=== PATIENT | female | born 1995 | race Caucasian/White ===

== ENCOUNTER 2016-11-10 11:49 | Emergency (ER) | payer OTHER ==
[2016-11-10 12:08] VITALS: BP 127/65
--- NOTE | 2016-11-10 12:17 | UC ---
Ear Complaint HPI - HPI Summary HPI Summary: right ear fullness, cannot hear well from the right ear, mild ear pain , no cold sx, no fever, no chills - History of Current Complaint Chief Complaint: UCEar Stated Complaint: RIGHT EAR PAIN Time Seen by Provider: 11/10/16 12:12 Hx Obtained From: Patient Hx Last Menstrual Period: 11/06/16 ?: No Onset/Duration: Gradual Onset, Lasting Days - 1, Still Present Severity Initially: Moderate Severity Currently: Moderate Aggravating Factors: Nothing Alleviating Factors: Nothing Associated Signs/Symptoms: Positive: Hearing Loss - right ear. Negative: Discharge, Foreign Body Sensation, Trauma to Ear, Swelling @, URI Symptoms - Allergies/Home Medications Allergies/Adverse Reactions: Allergies Allergy/AdvReac Type Severity Reaction Status Date / Time No Known Allergies Allergy Verified 11/10/16 12:08 Home Medications: Home Medications Norgestrel & Ethinyl Estradiol [Cryselle-28 0.3-30 mg-Mcg] 1 tab PO DAILY [History Confirmed 11/10/16] PMH/Surg Hx/FS Hx/Imm Hx Respiratory History Of: Reports: Asthma - R/T [employer] - Surgical History Surgical History: Yes Surgery Procedure, Year, and Place: WISDOM TEETH, RIGHT MENISCUS, HAGELIN'S DEFORMITY LEFT FOOT, 2 OVARIAN CYSTS - Family History Known Family History: Positive: None Negative: Diabetes - Social History Alcohol Use: Weekly Substance Use Type: None Smoking Status (MU): Never Smoked Tobacco - Immunization History Most Recent Influenza Vaccination: none Review of Systems Constitutional: Negative Skin: Negative Eyes: Negative ENT: Ear Ache - right ear Respiratory: Negative All Other Systems Reviewed And Are Negative: Yes Physical Exam Triage Information Reviewed: Yes Appearance: Well-Appearing, No Pain Distress, Well-Nourished Vital Signs: Initial Vital Signs Temp 98.5 F 11/10/16 12:03 Pulse 70 11/10/16 12:03 Resp 14 11/10/16 12:03 BP 127/65 11/10/16 12:03 Pulse Ox 98 11/10/16 12:03 Vital Signs Reviewed: Yes Eyes: Positive: Conjunctiva Clear ENT: Positive: Normal ENT inspection, Hearing grossly normal, Pharynx normal, Other: - cerumen impaction right ear Neck: Positive: Supple, Nontender, No Lymphadenopathy Respiratory: Positive: Chest non-tender, Lungs clear, Normal breath sounds Cardiovascular: Positive: RRR, No Murmur, Pulses Normal Skin Exam: Normal Ear Complaint Course/Dx - Differential Dx/Diagnosis Provider Diagnoses: cerumen impaction right ear Discharge - Discharge Plan Condition: Stable Disposition: HOME Patient Education Materials: Cerumen Impaction (ED) Referrals: Non Staff,Doctor [Primary Care Provider] - If Needed
== END 2016-11-10 12:51 | disposition home or self-care (01) ==
LOC: UCCORT 11:49
DX: H61.21 Impacted cerumen, right ear (principal); J45.909 Unspecified asthma, uncomplicated
CPT/HCPCS: 69209; 99211; G0463

== ENCOUNTER 2017-05-05 20:24 | Emergency (ER) | payer OTHER ==
[2017-05-05 20:43] VITALS: BP 134/76
[2017-05-05] MEDS ORDERED: Albuterol/Ipratropium NEB.SOL* Albuterol 2.5 MG/Ipratropium 0.5 MG 3 ML INH ONE (21:01)
[2017-05-05] MEDS ORDERED: predniSONE TAB* 20 MG PO ONE (21:01)
--- NOTE | 2017-05-05 21:07 | UC ---
Respiratory Complaint HPI - HPI Summary HPI Summary: Cough and congestion for three days. she has asthma and this often triggers it. She has felt chest tightness and wheezing. No fever or hemoptysis. She has albuterol MDI and spacer at home. She has hx of this and it often is helped with steroids, z pack, albuterol. - History of Current Complaint Chief Complaint: UCRespiratory Stated Complaint: COUGH Time Seen by Provider: 05/05/17 20:48 Hx Obtained From: Patient Hx Last Menstrual Period: 04/22/17 Onset/Duration: Gradual Onset, Lasting Days Timing: Constant Severity Initially: Mild Severity Currently: Moderate Character: Cough: Nonproductive Aggravating Factors: Deep Breaths, Recumbent Position Alleviating Factors: Nothing Associated Signs And Symptoms: Positive: URI, Nasal Congestion, Hoarseness. Negative: Dyspnea, Fever, Chills, Pleuritic Chest Pain, Hemoptysis, Dizziness, Calf Pain, Calf Swelling - Allergies/Home Medications Allergies/Adverse Reactions: Allergies Allergy/AdvReac Type Severity Reaction Status Date / Time No Known Allergies Allergy Verified 05/05/17 20:34 Home Medications: Home Medications [id number] [Night Time Multi-Symptom] 1 cap PO PRN 05/05/17 [History] Dextromethorphan-Phenylephrine [Day Time Multi-Symptom Co] 1 cap PO PRN [History] Montelukast Sodium TAB* [Singulair TAB*] 10 mg PO BEDTIME 05/05/17 [History Confirmed 05/05/17] PMH/Surg Hx/FS Hx/Imm Hx Previously Healthy: No - asthma. - Surgical History Surgical History: Yes Surgery Procedure, Year, and Place: WISDOM TEETH, RIGHT MENISCUS, HAGELIN'S DEFORMITY LEFT FOOT, 2 OVARIAN CYSTS - Family History Known Family History: Positive: None, Cardiac Disease, Hypertension, Diabetes, Respiratory Disease - Social History Alcohol Use: Weekly Substance Use Type: None Smoking Status (MU): Never Smoked Tobacco - Immunization History Most Recent Influenza Vaccination: none Review of Systems Respiratory: Cough All Other Systems Reviewed And Are Negative: Yes Physical Exam Triage Information Reviewed: Yes Appearance: Well-Appearing, No Pain Distress, Well-Nourished Vital Signs: Initial Vital Signs Temp 99 F 05/05/17 20:38 Pulse 88 10/25/17 20:38 Resp 20 05/05/17 20:38 BP 134/76 05/05/17 20:38 Pulse Ox 99 05/05/17 20:38 Vital Signs Reviewed: Yes Eye Exam: Normal Eyes: Positive: Conjunctiva Clear ENT: Positive: Normal ENT inspection. Negative: TMs normal, Tonsillar swelling , Tonsillar exudate, Trismus, Muffled/hoarse voice Neck exam: Normal Neck: Positive: Supple, Nontender, No Lymphadenopathy Respiratory: Positive: Lungs clear, Normal breath sounds, No respiratory distress, No accessory muscle use. Negative: Respiratory distress, Decreased breath sounds, Accessory muscle use, Crackles, Rhonchi, Stridor, Wheezing Cardiovascular Exam: Normal Cardiovascular: Positive: RRR, No Murmur, Pulses Normal Abdomen Description: Positive: Nontender, No Organomegaly, Soft Musculoskeletal: Positive: Strength Intact, ROM Intact, No Edema Neurological: Positive: Alert, Muscle Tone Normal. Negative: Fatigued Skin: Negative: rashes UC Diagnostic Evaluation - Laboratory O2 Sat by Pulse Oximetry: 99 Respiratory Course/Dx - Differential Dx/Diagnosis Provider Diagnoses: acute bronchitis. acute asthma exacerbation. Discharge - Discharge Plan Condition: Good Disposition: HOME Prescriptions: Acetaminophen W/ Codeine [Acetaminophen/Codeine 300-15 mg] 1 tab PO BEDTIME #1 tab MDD 1 Albuterol HFA INHALER* [Ventolin HFA Inhaler*] 1 - 2 puff INH Q4H PRN #1 mdi PRN Reason: Cough Azithromyxin MARCIA (NF) [Z-Marcia (Zithromax) 250 mg tabs #6] 1 tab PO .TODAY, THEN 1 DAILY #6 tab predniSONE TAB* [Deltasone TAB*] 20 mg PO DAILY #12 tab Patient Education Materials: Acute Bronchitis (ED) Referrals: Non Staff,Doctor [Primary Care Provider] - Additional Instructions: return here or to [facility] for any worsening.
== END 2017-05-05 21:23 | disposition home or self-care (01) ==
LOC: UCCORT 20:24
DX: J20.9 Acute bronchitis, unspecified (principal); J45.901 Unspecified asthma with (acute) exacerbation
CPT/HCPCS: 99212; A9270-GY; G0463; J7512

== ENCOUNTER 2018-05-15 17:08 | Emergency (ER) | payer BC, OTHER ==
[2018-05-15 17:39] VITALS: BP 131/84
[2018-05-15] MEDS ORDERED: methylPREDNISolone 125 MG* 2 ML VIAL IM ONE (18:14)
[2018-05-15] MEDS ORDERED: Albuterol/Ipratropium NEB.SOL* Albuterol 2.5 MG/Ipratropium 0.5 MG 3 ML INH ONE (18:15)
[2018-05-15] MEDS ORDERED: Azithromycin TAB* 250 MG PO ONE (18:15)
[2018-05-15] MEDS ORDERED: Ipratropium 0.5MG/2.5ML NEB* 0.5 MG/2.5 ML NEB.SOLN INH ONE (18:19)
--- NOTE | 2018-05-15 18:22 | UC ---
Respiratory Complaint HPI - HPI Summary HPI Summary: Patient with a history of asthma, has been using her albuterol neb but not effective for her cough. she has been having fevers as high as 101. SOB especially with exertion. - History of Current Complaint Chief Complaint: UCRespiratory Stated Complaint: COUGH, ST Time Seen by Provider: 05/15/18 17:50 Hx Obtained From: Patient Hx Last Menstrual Period: 05/10/18 Onset/Duration: Gradual Onset, Lasting Weeks Timing: Constant Severity Initially: Moderate Severity Currently: Moderate Pain Intensity: 0 Aggravating Factors: Exertion, Deep Breaths, Recumbent Position Alleviating Factors: Nothing Associated Signs And Symptoms: Positive: Dyspnea, Fever, Chills, Wheezing - Allergies/Home Medications Allergies/Adverse Reactions: Allergies Allergy/AdvReac Type Severity Reaction Status Date / Time No Known Allergies Allergy Verified 05/15/18 17:39 Home Medications: Home Medications Albuterol 2.5MG/3ML (0.083%)* [Ventolin 2.5 MG/3 ML NEB.EDUARDO*] 2.5 mg INH Q6H 10/27 [History Confirmed 05/15/18] PMH/Surg Hx/FS Hx/Imm Hx Previously Healthy: Yes - Surgical History Surgical History: Yes Surgery Procedure, Year, and Place: WISDOM TEETH, RIGHT MENISCUS, HAGELIN'S DEFORMITY LEFT FOOT, 2 OVARIAN CYSTS - Family History Known Family History: Positive: None, Cardiac Disease, Hypertension, Diabetes, Respiratory Disease - Social History Alcohol Use: Weekly Substance Use Type: None Smoking Status (MU): Never Smoked Tobacco - Immunization History Most Recent Influenza Vaccination: none Review of Systems Constitutional: Fever, Chills, Fatigue Skin: Negative Eyes: Negative ENT: Negative Respiratory: Shortness Of Breath, Cough Cardiovascular: Negative Gastrointestinal: Negative Genitourinary: Negative Motor: Negative Neurovascular: Negative Musculoskeletal: Negative Neurological: Headache Psychological: Negative Is Patient Immunocompromised?: No All Other Systems Reviewed And Are Negative: Yes Physical Exam Triage Information Reviewed: Yes Appearance: Well-Nourished, Ill-Appearing, Pain Distress Vital Signs: Initial Vital Signs Temp 97.8 F 05/15/18 17:34 Pulse 79 05/15/18 17:34 Resp 20 05/15/18 17:34 BP 131/84 05/15/18 17:34 Pulse Ox 98 05/15/18 17:34 Vital Signs Reviewed: Yes Eye Exam: Normal ENT: Positive: Pharyngeal erythema, TM bulging Dental Exam: Normal Neck exam: Normal Neck: Positive: Supple, Nontender, No Lymphadenopathy Respiratory: Positive: Chest non-tender, Decreased breath sounds, Wheezing, Inspiration Cardiovascular Exam: Normal Cardiovascular: Positive: RRR, No Murmur, Pulses Normal Abdominal Exam: Normal Abdomen Description: Positive: Nontender, No Organomegaly, Soft Bowel Sounds: Positive: Present Musculoskeletal Exam: Normal Neurological Exam: Normal Psychological Exam: Normal Skin Exam: Normal UC Diagnostic Evaluation - Laboratory O2 Sat by Pulse Oximetry: 98 Respiratory Course/Dx - Course Course Of Treatment: hx obtained, exam performed ,meds reviewed, treated with neb, and steroids as well as abx - Differential Dx/Diagnosis Differential Diagnosis/HQI/PQRI: Asthma, Bronchitis, Lower Resp Infection, Sinusitis Provider Diagnoses: bronchitis. asthma Discharge - Sign-Out/Discharge Documenting (check all that apply): Patient Departure All imaging exams completed and their final reports reviewed: No Studies - Discharge Plan Condition: Stable Disposition: HOME Prescriptions: Azithromycin TAB* [Zithromax TAB (Z-MARCIA) 250 mg #6 tabs] 250 mg PO DAILY #4 tab predniSONE [Prednisone 20 MG TAB] 20 mg PO DAILY #10 tablet Patient Education Materials: Acute Bronchitis (ED) Referrals: No Primary Care Phys,NOPCP [Primary Care Provider] - Additional Instructions: 1. use the medication as prescribed. 2. COld care tea, honey, salt water gargles 3. Follow up as needed. - Billing Disposition and Condition Condition: STABLE Disposition: Home
[2018-05-15] MEDS: Albuterol 2.5 MG/3 ML NEB.SOL* (0.083%) INH ONE ×2 (18:28→18:29)
== END 2018-05-15 19:20 | disposition home or self-care (01) ==
LOC: UCCORT 17:08
DX: J45.909 Unspecified asthma, uncomplicated (principal); J40 Bronchitis, not specified as acute or chronic
CPT/HCPCS: 96372; 99212; A9270-GY; G0463; J2930

== ENCOUNTER 2018-05-19 15:51 | Emergency (ER) | payer BC ==
[2018-05-19 16:54] VITALS: BP 124/71
[2018-05-19] MEDS ORDERED: Albuterol/Ipratropium NEB.SOL* Albuterol 2.5 MG/Ipratropium 0.5 MG 3 ML INH ONE (17:36)
--- NOTE | 2018-05-19 17:48 | UC ---
General HPI - HPI Summary HPI Summary: Patient is a 22-year-old female with a history of asthma. Patient was seen 5 days ago with cough and body aches. Patient was given DuoNeb prednisone and Z- Nelson. Patient states she was diagnosed with bronchitis at that point. Patient states she started to improve until yesterday. Patient states the cough got worse. Patient reports she's been having fevers and breaks out in sweat. Patient has not taken any antipyretics. Patient has a rescue inhaler which she' s been using his needed to 3 times a day. Patient states coughing is persistent. Patient states she has fatigue. No nausea vomiting. 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 Patient with multiple sick contacts. 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 She is eating and drinking although she doesn't have much appetite. Patient has not gotten a flu shot. no OTC products. Pt is on prednisone still. Pt does have a humidifier. Pt did not change toothbrush / pillowcase Pt's medications reviewed this visit - History of Current Complaint Chief Complaint: UCGeneralIllness Stated Complaint: FATIGUE/ACHY Time Seen by Provider: 05/19/18 17:18 Hx Obtained From: Patient Hx Last Menstrual Period: 04/2018 Onset/Duration: Gradual Onset Timing: Constant Onset Severity: Mild Current Severity: Moderate Pain Intensity: 6 - Allergy/Home Medications Allergies/Adverse Reactions: Allergies Allergy/AdvReac Type Severity Reaction Status Date / Time No Known Allergies Allergy Verified 05/19/18 16:43 Home Medications: Home Medications Azithromycin TAB* [Zithromax TAB (Z-NELSON) 250 mg #6 tabs] 2 tab PO .TODAY, THEN 1 DAILY 05/19/18 [History Confirmed 05/19/18] predniSONE TAB* [Deltasone 20 MG TAB*] 20 mg PO DAILY 05/19/18 [History Confirmed 05/19/18] PMH/Surg Hx/FS Hx/Imm Hx Previously Healthy: Yes Respiratory History: Asthma - Surgical History Surgical History: Yes Surgery Procedure, Year, and Place: WISDOM TEETH, RIGHT MENISCUS, HAGELIN'S DEFORMITY LEFT FOOT, 2 OVARIAN CYSTS - Family History Known Family History: Positive: None, Cardiac Disease, Hypertension, Diabetes, Respiratory Disease - Social History Occupation: Student Lives: Dormitory/Roommates Alcohol Use: Occasionally Substance Use Type: None Smoking Status (MU): Never Smoked Tobacco - Immunization History Most Recent Influenza Vaccination: none Review of Systems All Other Systems Reviewed And Are Negative: Yes ENT: Positive: Sinus Congestion Respiratory: Positive: Cough Is Patient Immunocompromised?: No Physical Exam - Summary Physical Exam Summary: Vital Signs Reviewed: Yes A+Ox3, coarse cough Eyes: Conjunctiva Clear, MARK. EOM intact and full ENT: Hearing grossly normal TM x 2 clear, mmoist, uvula midline, no exudate, no erythema Neck: Positive: Supple Respiratory: Positive: Coarse cough, wheeze right base no retractions, accessory muscle use Cardiovascular: RRR nl s1, s2 no m/r CBT <2 sec abd soft + BS nt/nd no guarding, no distension Musculoskeletal Exam: WELLS x 4 without difficulty Strength Intact, ROM Intact Neurological: Positive: Alert, + sensation throughout Psychological: Positive: Normal Response To Family Skin: Positive: no rash, no ecchymosis Triage Information Reviewed: Yes Vital Signs: Initial Vital Signs Temp 98.2 F 05/19/18 16:45 Pulse 76 05/19/18 16:45 Resp 14 05/19/18 16:45 BP 124/71 05/19/18 16:45 Pulse Ox 100 05/19/18 16:45 Diagnostics - Radiology No standard instances Radiology Interpretation Completed By: Radiologist - Patient Name: MARGARITA LOYD Medical Record#: [id number] Ordering Physician: Huong Proctor MD Acct.#: [id number] : 1995 Age: 22 Sex: F Location: [facility] Exam Date: 05/19/18 1735 ADM Status: REG ER Order Information: CHEST PA & LAT 2 VWS Accession Number: [id number] CPT: 54672 Indication: Cough, fever. 2 views of the chest including dual energy PA views demonstrate no mediastinal shift. Heart is of normal size and configuration. Lung vance appear clear. IMPRESSION: No active cardiopulmonary disease is noted. <Electronically signed by Chiquis Bashir MD in OV> 05/19/18 8373 Dictated By: Chiquis Bashir MD Dictated Date/Time: 05/19/181754 Transcribed Date/ Time: 05/19/181753 Copy to: CC:Huong Proctor MD; No Primary Care Phys,NOPCP Imaging - [facility] - [facility] - [facility] [id number] [place], [place] [id number] [place] [id number] [place] [address] ph [phone] ph ([phone] ph ) This report is only to be considered final once signed by the Provider(s) as displayed in the "<Electronically Signed by >" field (s). Absence of a signature indicates the report is in a draft status and still needs to be finalized. In the event this document was created by someone other than the signing Provider, the individual initiating the document will be listed in the "Entered by:" or "Dictated by:" vance. 1 of 1 Re-Evaluation - Re-Evaluation First Eval Re-Evaluation Time: 18:13 Change: Improved Comment: Pt improved following neb. Pt's pred orderd 20mg QD x 10 days. Will ioncrease to 40mg x 3 days, 20mg x 3 days 10mg x 4 days. doxy. diflucan. MDI with spacer. secretion precaution. student teaching note Course/Dx - Course Course Of Treatment: Patient presents to urgent care with ongoing cough. Patient completed a course of Zithromax and is on prednisone. Patient with coarse cough and wheezing right base. We'll give a DuoNeb and check a chest x- ray. Patient's influenza was negative. Discussed with patient about albuterol. We'll give spacer. Given a second round of antibiotics pending chest x-ray and patient's response to treatment. Patient comfortable in agreement with plan. Patient's vital signs are not concerning at urgent care but today. Patient has not taken any [id number] medications or antipyretics. - Differential Dx - Multi-Symptom Provider Diagnoses: bronchitis Discharge - Sign-Out/Discharge Documenting (check all that apply): Patient Departure All imaging exams completed and their final reports reviewed: Yes - Discharge Plan Condition: Stable Disposition: HOME Prescriptions: DOXYcycline CAP(*) [DOXYcycline 100MG CAP(*)] 100 mg PO BID #14 cap Fluconazole [Diflucan 150 MG (NF)] 150 mg PO ONCE PRN #1 tab PRN Reason: vaginal yeast infection predniSONE [Deltasone 20 MG TAB] 20 mg PO DAILY #5 tablet Patient Education Materials: Acute Bronchitis (ED) Forms: *Work Release Referrals: No Primary Care Phys,NOPCP [Primary Care Provider] - [facility] [Outside] Additional Instructions: - Take antibiotics as prescribed until gone. You may develop diarrhea - it is recommended you continued with vitamins and eat yogurt to help decrease diarrhea - Take prednisone as prescribed: 40mg x 3 days (Take 1 20mg tab tonight), 2 tablet tomorrow, 2 tablets on Sat as prescribed - humidify the air in the room where you sleep - Use your inhaler (with a spacer) every 4 hours today and tomorrow, then every 4 hours as needed - - Alternate ibuprofen (Advil, Motrin) 600mg and Tylenol every 3 hours for pain or fever. Take with food. Do NOT take for more than 4-5 days. - These infections are spread by secretions - do NOT share eating or drinking utensils - clean items you share with other people such as cell phones, computer mouse, TV remote, computer tablets,etc.After you have been on antibiotics for 2 days, change your toothbrush and your pillowcase. - Contact student health or return with questions or concerns - - Billing Disposition and Condition Condition: STABLE Disposition: Home
== END 2018-05-19 18:28 | disposition home or self-care (01) ==
LOC: UCCORT 15:51
DX: J40 Bronchitis, not specified as acute or chronic (principal); J45.909 Unspecified asthma, uncomplicated; R52 Pain, unspecified
CPT/HCPCS: 71046; 99212; A9270-GY; G0463

== ENCOUNTER 2018-06-09 16:20 | Emergency (ER) | payer BC ==
[2018-06-09 16:43] VITALS: BP 124/75
--- NOTE | 2018-06-09 17:37 | UC ---
Respiratory Complaint HPI - HPI Summary HPI Summary: Pt c/o cough, malaise, X 3 weeks. Pt has been seen here twice before this month and given, doxycycline, z-pac, prednisone , had chest xray and been tested for mono at home by pcp. - History of Current Complaint Chief Complaint: UCRespiratory Stated Complaint: COUGH,FEVER,ACHES Time Seen by Provider: 06/09/18 16:45 Hx Obtained From: Patient Hx Last Menstrual Period: 05/08/18 ?: No Onset/Duration: Sudden Onset, Lasting Weeks, Still Present Timing: Constant Severity Initially: Mild Severity Currently: Moderate Pain Intensity: 0 Character: Cough: Nonproductive Aggravating Factors: Deep Breaths, Recumbent Position Alleviating Factors: Nothing Associated Signs And Symptoms: Positive: URI - Risk Factors Pulmonary Embolism Risk Factors: Oral Contraceptives Cardiac Risk Factors: Negative Pseudomonas Risk Factors: Negative Tuberculosis Risk Factors: Negative - Allergies/Home Medications Allergies/Adverse Reactions: Allergies Allergy/AdvReac Type Severity Reaction Status Date / Time No Known Allergies Allergy Verified 06/09/18 16:38 Home Medications: Home Medications Albuterol 2.5MG/3ML (0.083%)* [Ventolin 2.5 MG/3 ML NEB.EDUARDO*] 2.5 mg INH Q6H PRN 06/09/18 [History Confirmed 06/09/18] PMH/Surg Hx/FS Hx/Imm Hx Previously Healthy: Yes - Surgical History Surgical History: Yes Surgery Procedure, Year, and Place: WISDOM TEETH, RIGHT MENISCUS, HAGELIN'S DEFORMITY LEFT FOOT, 2 OVARIAN CYSTS - Family History Known Family History: Positive: Cardiac Disease, Hypertension, Diabetes, Respiratory Disease - Social History Occupation: Student Lives: Dormitory/Roommates Alcohol Use: Occasionally Substance Use Type: None Smoking Status (MU): Never Smoked Tobacco Have You Smoked in the Last Year: No - Immunization History Most Recent Influenza Vaccination: none Vaccination Up to Date: Yes Review of Systems All Other Systems Reviewed And Are Negative: Yes Constitutional: Positive: Fatigue Skin: Positive: Negative Eyes: Positive: Negative ENT: Positive: Negative Respiratory: Positive: Cough Cardiovascular: Positive: Negative Gastrointestinal: Positive: Negative Genitourinary: Positive: Negative Motor: Positive: Negative Neurovascular: Positive: Negative Musculoskeletal: Positive: Myalgia Neurological: Positive: Negative Psychological: Positive: Negative Is Patient Immunocompromised?: No Physical Exam Triage Information Reviewed: Yes Appearance: Ill-Appearing Vital Signs: Initial Vital Signs Temp 99 F 06/09/18 16:36 Pulse 93 06/09/18 16:36 Resp 16 06/09/18 16:36 BP 124/75 06/09/18 16:36 Pulse Ox 100 06/09/18 16:36 Vital Signs Reviewed: Yes Eye Exam: Normal ENT Exam: Normal Dental Exam: Normal Neck exam: Normal Respiratory Exam: Normal Respiratory: Positive: Other: - bronchospastic cough Cardiovascular Exam: Normal Musculoskeletal Exam: Normal Neurological Exam: Normal Psychological Exam: Normal Skin Exam: Normal UC Diagnostic Evaluation - Laboratory O2 Sat by Pulse Oximetry: 100 Respiratory Course/Dx - Course Course Of Treatment: After initial exam and just prior to blood draw, pt reported that she began to feel "freezing" and that she had "hives" bilateral forearms. - Differential Dx/Diagnosis Differential Diagnosis/HQI/PQRI: Bronchitis Provider Diagnosis: Reactive airway disease Discharge - Sign-Out/Discharge Documenting (check all that apply): Patient Departure All imaging exams completed and their final reports reviewed: No Studies - Discharge Plan Condition: Stable Disposition: HOME Prescriptions: Cetirizine* [ZyrTEC 10 MG TAB*] 10 mg PO DAILY #10 tab diPHENhydraMINE PO* [Benadryl PO 25 MG TAB*] 25 mg PO BEDTIME #10 tab predniSONE TAB* [Deltasone 10 MG TAB*] 30 mg PO DAILY #12 tab Patient Education Materials: Bronchospasm (ED), Fatigue (ED), Acute Cough (ED) Referrals: No Primary Care Phys,NOPCP [Primary Care Provider] - [facility] [Outside] - As Soon As Possible - Billing Disposition and Condition Condition: STABLE Disposition: Home
[2018-06-10 10:35] LABS: ABS Basophils 0 10^3/ul (0-0.2); ABS Eosinophils 0.1 10^3/ul (0-0.6); ABS Lymphocytes 2.1 10^3/ul (1.0-4.8); ABS Monocytes 0.5 10^3/ul (0-0.8); ABS Neutrophils 3.8 10^3/ul (1.5-7.7); ABS Nucleated RBC 0 10^3/ul; Eosinophil % 1.2 %; Hematocrit 39 % (35-47); Hemoglobin 12.6 g/dl (12.0-16.0); Lymphocyte % 31.6 %; Mean Corpuscular HGB Conc 32 g/dl (31-36); Mean Corpuscular Hemoglobin 25 pg (27-31); Mean Corpuscular Volume 79 fL (80-97); Nucleated Red Blood Cells % 0; Platelet Count 298 10^3/ul (150-450); Red Blood Count 4.96 10^6/ul (4.00-5.40); Red Cell Distribution Width 14 % (10.5-15); White Blood Count 6.5 10^3/ul (3.5-10.8)
[2018-06-10 10:50] LABS: EGFR Non-African American 99.7 (>60)
== END 2018-06-09 17:35 | disposition home or self-care (01) ==
LOC: UCCORT 16:20
DX: J45.909 Unspecified asthma, uncomplicated (principal)
CPT/HCPCS: 36415; 80053; 85025; 99212; G0463